=== PATIENT | female | born 1950 | race Caucasian/White ===

== ENCOUNTER 2023-12-24 21:08 | Emergency (ER) | payer OTHER, SELFPAY ==
[2023-12-24 21:10] VITALS: BP 144/76
--- NOTE | 2023-12-24 22:27 | ED.GENMED ---
History of Present Illness
General
Chief Complaint: Skin Surface Trauma
Source: patient
Time Seen by Provider: 12/24/23 21:53
Travel History
Have you had any contact with someone who has COVID-19?: No
Do you have any symptoms of coronavirus? Fever > 100 degrees, chills, cough, shortness of breath, sore throat, loss of taste or smell, muscle aches, or headache?: No
History of Present Illness
History of Present Illness:
73-year-old female with past medical history of hypertension and hyperlipidemia presenting to the emergency department for evaluation after an accidental fall on a concrete sidewalk injuring her right knee and sustaining a circular laceration just
inferior to the patella. No other injuries were sustained. Unknown last tetanus vaccine.
Past History
Past History
ED Past Medical History: HTN and Hypercholesterolemia
ED Past Surgical History: Orthopedic and Tonsilectomy
Social History
Tobacco: Non-smoker
Alcohol: Occasional
Drug: None
Personal:
Living: alone
Review of Systems
Review of Systems
All Other Systems: ROS reviewed and negative except as documented in HPI and ROS
Phy Exam
Physical Exam
Physical Exam:
GENERAL: Alert , in no apparent distress
EYE: conjunctiva clear
Head: Normocephalic atraumatic
NECK: Supple,
ENT: mmm.
LUNGS: no acute respiratory distress
NEUROLOGICAL: Alert and oriented
SKIN: Warm and dry, circular 1-1/2 cm laceration inferior to the patella with surrounding abrasion and skin maceration. No active
MUSCULOSKELETAL: well perfused. Full range of motion of the right knee and able to ambulate
PSYCH: Normal and appropriate interaction.
Scores
Heart Failure Risk
Heart Failure Risk Score: Not Applicable
Heart Score for Chest Pain Patients
STEMI patient?: Not applicable
Withdrawal Assessment of Alcohol
Withdrawal Assessment Completed?: Not applicable
Course
Orders/Labs/Results
Orders:
Orders
12/24/23 22:06
Tetanus/Diphth/Acelpertussis [Adacel] 0.5 ml IM .ONCE ONE
Vital Signs
Initial and Last Documented VS:
Initial Vital Signs
Temp Pulse Resp BP Pulse Ox
98.1 F 111 18 144/76 96
12/24/23 21:10 12/24/23 21:10 12/24/23 21:10 12/24/23 21:10 12/24/23 21:10
Last Documented Vital Signs
Temp Pulse Resp BP Pulse Ox
98.1 F 111 18 144/76 96
12/24/23 21:10 12/24/23 21:10 12/24/23 21:10 12/24/23 21:10 12/24/23 21:10
Procedures
Laceration Closure
Right Anterior Knee:
Status of Wound: clean
Size of Wound in cm: 1.5
Description of Wound Edges: ragged and surrounded by abrasion
Preparation: cleaned with saline
Anesthesia: 1% Lidocaine with epi
Revision/Debridement: routine- no revision
Type of Closure: layered closure
Skin Closure Material: 5-0 nylon (4) and 5-0 vicryl (4)
Number of sutures: 8
MDM/Problems Addressed
Differential Diagnosis Includes:
Proximal abrasion/laceration similar contusion, I do not have concern for fracture
MDM/Problems Addressed:
73-year-old female presenting emergency department for evaluation of right knee laceration. Laceration repaired as above without any difficulty. There is surrounding abrasion. Will place dressing over top and patient was advised on wound care.
Suture removal in 12 to 14 days. Patient aware of return precautions to the ER but otherwise stable for discharge home.
*Pulse Oximetry
Patient hypoxic: no
*Critical Care Note
Total Time (30-74mins, 75-104mins- exclusive of procedures): Not Applicable
ED Attending Note
-
Portions of this chart may have been created with voice recognition software.� Occasional wrong word or��sound alike� substitutions may have occurred due to the inherent limitations of voice recognition software.
Discharge Plan
Departure
Patient Disposition: Home (Routine Discharge)
Date of Disposition: 12/24/23
Time of Disposition: 22:27
Patient with high blood pressure during this ER visit?: Yes
Discharge Problem:
Laceration of knee, right
Instructions: Wound Care (DC), Laceration Repair With Stitches (DC)
Referrals:
Sae Walter DO [Family Provider] -
Activity Restrictions/Additional Instructions:
Suture removal in 12-14 days
Interventions
Interventions:
*Risk Screen - Suicide Last Done: 12/24/23 21:34
*General Assessment Last Done: 12/24/23 21:10
*Neglect/Abuse Screening Last Done: 12/24/23 21:34
ED-Skin Assessment Last Done: 12/24/23 21:34
Discharge Date and Time
Print Language: GERMAN
[2023-12-24] MEDS: ADACEL 0.5 ML IM (22:31)
[2023-12-24 22:40] VITALS: BP 136/75
[2023-12-24 22:41] VITALS: BP 136/75
== END 2023-12-24 22:42 | disposition home or self-care (01) ==
LOC: EMR 21:08
PROVIDERS: EMERGENCY PHYSICIAN Emergency Medicine; FAMILY PHYSICIAN Family Medicine
DX: S81.011A Laceration without foreign body, right knee, initial encounter (principal); W19.XXXA Unspecified fall, initial encounter; Z23 Encounter for immunization; I10 Essential (primary) hypertension; E78.00 Pure hypercholesterolemia, unspecified
CPT/HCPCS: 99282; 12031; 90471; 90715

== ENCOUNTER → 2024-09-23 09:20 | Outpatient (REF) | payer OTHER, SELFPAY | LOC: HWRAD 09:20 | PROVIDERS: ATTENDING PHYSICIAN Internal Medicine Hematology & Oncology; FAMILY PHYSICIAN Nurse Practitioner Family | DX: R76.8 Other specified abnormal immunological findings in serum (principal) | CPT/HCPCS: 76700 ==